=== PATIENT | male | born 1965 | race Caucasian/White ===

== ENCOUNTER 2019-02-22 09:01 | Emergency (ER) | payer OTHER ==
[~2019-02-22] VITALS: Ht 177.8 cm; Wt 91.7 kg
[~2019-02-22 09:01] MED LIST: APIX5TAB PO; ATOR40TA78 PO; CHOL400T2 PO; GABA300C10 PO; HYDR25TA6 PO; INSU100I13 SQ-INSULIN; LISI-167 PO; METF-649 PO; METF500T17 PO; PANT40TA5 PO; SULF-169 PO; TRAZ-137 PO
[2019-02-22] MEDS ORDERED: SODIUM CHLORIDE FLUSH 10ML SYR IVF ONE (10:00)
--- NOTE | 2019-02-22 10:08 | NUR ---
non toxic appearing man presents to ed with c/o of left sided facial swelling from jaw into ear. States started 2 days ago and has gotten progressively worse. Having some issues swollen and with balance. States this doesnt feel like a dental infection. IV started. Pt placed on cont. pulse ox and bp. POC discussed. Pt agreeable. Will continue to monitor.
[2019-02-22 10:48] LABS: BASOPHILS # (AUTO) 0.04 x10^3/uL (0-0.1); BASOPHILS % (AUTO) 0 % (0-1); EOSINOPHILS # (AUTO) 0.28 x10^3/uL (0-0.4); EOSINOPHILS % (AUTO) 3 % (1-7); LYMPHOCYTES # (AUTO) 1.08 x10^3/uL (1-3.4); LYMPHOCYTES % (AUTO) 12 % (22-44); MD NO; MEAN CORPUSCULAR HEMOGLOBIN 29.1 pg (27.5-34.5); MEAN CORPUSCULAR HGB CONC 33.1 g/dL (33.2-36.2); MEAN PLATELET VOLUME 8.6 fL (7.4-10.4); MONOCYTES # (AUTO) 0.77 x10^3/uL (0.2-0.8); MONOCYTES % (AUTO) 9 % (2-9); NEUTROPHILS # (AUTO) 6.63 x10^3/uL (1.8-6.8); NEUTROPHILS % (AUTO) 75 % (42-75); PLATELET COUNT 206 x10^3/uL (130-400); RED CELL DISTRIBUTION WIDTH 15.2 % (9.4-14.8)
[2019-02-22 10:49] LABS: ALBUMIN 3.8 g/dL (3.4-5.0); ANION GAP 9 mmol/L (5-15); CALCIUM 8.8 mg/dL (8.5-10.1); CHLORIDE 102 mmol/L (98-107); CREATININE 0.94 mg/dL (0.7-1.3)
--- NOTE | 2019-02-22 11:00 | NUR ---
PT TO CT VIA [facility].
[2019-02-22] MEDS ORDERED: OMNIPAQUE 350 MG/ML, 75ML BOTTLE ONE (11:15)
--- NOTE | 2019-02-22 11:15 | NUR ---
PT BACK FROM CT VIA [facility].
[2019-02-22] MEDS ORDERED: CLINDAMYCIN PMX 600MG/50ML 50 ML IV SCH (12:16)
[2019-02-22] MEDS ORDERED: HYDROmorphone 1 MG/ML, 1ML VIAL ONE (12:26)
[2019-02-22] MEDS ORDERED: ONDANSETRON 2MG/ML, 2ML ONE (12:27)
[2019-02-22] MEDS ORDERED: CLINDAMYCIN PMX 600MG/50ML 50 ML ONE (12:27)
[2019-02-22] MEDS ORDERED: ONDANSETRON 2MG/ML, 2ML IVPush ONE (12:30)
[2019-02-22] MEDS ORDERED: HYDROmorphone 1 MG/ML, 1ML INJ IVPush PRN (12:30)
--- NOTE | 2019-02-22 12:34 | NUR ---
IV ABX STARTED PER JUN. BC X 2 DRAWN EARLIER. PT ALSO MEDICATED FOR PAIN. 5 RIGHTS VERIFIED PRIOR. 3 P'S ADDRESSED. POC UPDATED. WILL CONTINUE TO MONITOR.
[2019-02-22 13:40] VITALS: BP 170/97
== END 2019-02-22 13:50 | disposition home or self-care (01) ==
LOC: ED 11:32
DX: K02.9 Dental caries, unspecified (principal); L03.211 Cellulitis of face; I10 Essential (primary) hypertension; E11.9 Type 2 diabetes mellitus without complications; Z86.73 Personal history of transient ischemic attack (TIA), and cerebral infarction without residual deficits; Z87.891 Personal history of nicotine dependence
CPT/HCPCS: 36415; 70487; 80048; 82040; 85025; 87040; 96365; 96375; 99284; J1170; J2405; Q9967

== ENCOUNTER 2019-09-26 05:45 | Emergency (ER) | payer OTHER ==
[~2019-09-26] VITALS: Ht 177.8 cm; Wt 99.3 kg
[~2019-09-26 05:45] MED LIST changes: -TRAZ-137 PO; +TRAZ-175 PO
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
[2019-09-26] MEDS ORDERED: SODIUM CHLORIDE FLUSH 10ML SYR IVF ONE (06:00)
[2019-09-26] MEDS ORDERED: DIPHENHYDRAMINE 50 MG/ML, 1ML IVPush ONE (06:00)
[2019-09-26] MEDS ORDERED: METOCLOPRAMIDE 5 MG/ML, 2ML IVPush ONE (06:00)
[2019-09-26] MEDS ORDERED: INSU100I28 SC (06:10)
[2019-09-26] MEDS ORDERED: OMEP40CA42 PO (06:10)
[2019-09-26] MEDS ORDERED: AMLO-150 PO (06:10)
[2019-09-26] MEDS ORDERED: GLIP5TAB10 PO (06:10)
[2019-09-26] MEDS ORDERED: METO25TA35 PO (06:10)
[2019-09-26] MEDS ORDERED: LISI-170 PO (06:10)
--- NOTE | 2019-09-26 06:18 | NUR ---
PT TO CT.
[2019-09-26 06:22] LABS: BASOPHILS # (AUTO) 0.03 x10^3/uL (0-0.1); BASOPHILS % (AUTO) 1 % (0-1); EOSINOPHILS # (AUTO) 0.33 x10^3/uL (0-0.4); EOSINOPHILS % (AUTO) 6 % (1-7); LYMPHOCYTES # (AUTO) 1.11 x10^3/uL (1-3.4); LYMPHOCYTES % (AUTO) 19 % (22-44); MD NO; MEAN CORPUSCULAR HEMOGLOBIN 28.5 pg (27.5-34.5); MEAN CORPUSCULAR VOLUME 83.6 fL (81-97); MEAN PLATELET VOLUME 8.7 fL (7.4-10.4); MONOCYTES # (AUTO) 0.56 x10^3/uL (0.2-0.8); MONOCYTES % (AUTO) 10 % (2-9); NEUTROPHILS # (AUTO) 3.76 x10^3/uL (1.8-6.8); NEUTROPHILS % (AUTO) 65 % (42-75); PLATELET COUNT 196 x10^3/uL (130-400); RED BLOOD COUNT 5.03 x10^6/uL (4.38-5.82); RED CELL DISTRIBUTION WIDTH 13.5 % (9.4-14.8)
[2019-09-26] MEDS ORDERED: METOCLOPRAMIDE 5 MG/ML, 2ML ONE (06:23)
[2019-09-26] MEDS ORDERED: DIPHENHYDRAMINE 50 MG/ML, 1ML ONE (06:23)
--- NOTE | 2019-09-26 06:33 | NUR ---
PT MEDICATED TO MAR. ERP TO BEDSIDE TO COMPLETE STROKE SCALE AND UPDATE PT ON POC. PT ABLE TO DO ALL TASKS APPROPRIATELY DURING STROKE SCALE. NO SIGNS OF ACUTE DISTRESS, WILL CONTINUE TO MONITOR.
[2019-09-26 06:36] LABS: ALBUMIN 3.5 g/dL (3.4-5.0); ANION GAP 7 mmol/L (5-15); CALCIUM 8.3 mg/dL (8.5-10.1); CHLORIDE 106 mmol/L (98-107); CREATININE 0.94 mg/dL (0.7-1.3)
[2019-09-26 06:37] LABS: INTERNATIONAL NORMALIZED RATIO 0.93 (0.93-1.1); PROTHROMBIN TIME 9.8 Seconds (9.6-11.5)
--- NOTE | 2019-09-26 06:46 | NUR ---
REPORT GIVEN TO ILIR COOPER, TO ASSUME FULL CARE.
--- NOTE | 2019-09-26 06:46 | NUR ---
RECEIVED REPORT FROM CHANDRA. PT LAYING ON GURNEY AWAKE & CALM, RESPONDS APPROP TO STAFF, NAD, NO NEEDS AT THIS TIME, AT BS, CALL LIGHT WITHIN REACH.
[2019-09-26 08:02] VITALS: BP 135/76
--- NOTE | 2019-09-26 08:50 | NUR ---
Patient given discharge instructions and they have confirmed that they understand the instructions. Patient ambulatory with steady gait.
== END 2019-09-26 08:51 | disposition home or self-care (01) ==
LOC: ED 06:24
DX: R51 Headache (principal); I10 Essential (primary) hypertension; E11.9 Type 2 diabetes mellitus without complications; Z79.01 Long term (current) use of anticoagulants; Z86.73 Personal history of transient ischemic attack (TIA), and cerebral infarction without residual deficits
CPT/HCPCS: 36415; 70450; 80048; 82040; 85025; 85610; 85730; 96374; 96375; 99284; J1200; J2765

== ENCOUNTER 2019-10-15 15:18 | Emergency (ER) | payer SELFPAY ==
[~2019-10-15] VITALS: Ht 177.8 cm; Wt 100.5 kg
[~2019-10-15 15:18] MED LIST changes: +AMLO-150 PO; +GLIP5TAB10 PO; +INSU100I28 SC; +LISI-170 PO; +METO25TA35 PO; +OMEP40CA42 PO
[2019-10-15 15:28] VITALS: BP 160/82
[2019-10-15 15:58] LABS: BASOPHILS # (AUTO) 0.04 x10^3/uL (0-0.1); BASOPHILS % (AUTO) 1 % (0-1); EOSINOPHILS # (AUTO) 0.47 x10^3/uL (0-0.4); EOSINOPHILS % (AUTO) 6 % (1-7); LYMPHOCYTES # (AUTO) 1.76 x10^3/uL (1-3.4); LYMPHOCYTES % (AUTO) 22 % (22-44); MD NO; MEAN CORPUSCULAR HEMOGLOBIN 27.7 pg (27.5-34.5); MEAN CORPUSCULAR HGB CONC 32.6 g/dL (33.2-36.2); MEAN CORPUSCULAR VOLUME 85.1 fL (81-97); MEAN PLATELET VOLUME 8.8 fL (7.4-10.4); MONOCYTES # (AUTO) 0.61 x10^3/uL (0.2-0.8); MONOCYTES % (AUTO) 8 % (2-9); NEUTROPHILS # (AUTO) 4.99 x10^3/uL (1.8-6.8); NEUTROPHILS % (AUTO) 64 % (42-75); PLATELET COUNT 211 x10^3/uL (130-400); RED BLOOD COUNT 5.21 x10^6/uL (4.38-5.82); RED CELL DISTRIBUTION WIDTH 14.1 % (9.4-14.8)
[2019-10-15 16:07] LABS: ALANINE AMINOTRANSFERASE 49 U/L (12-78); ALBUMIN 3.5 g/dL (3.4-5.0); ANION GAP 4 mmol/L (5-15); CALCIUM 8.7 mg/dL (8.5-10.1); CHLORIDE 107 mmol/L (98-107); CREATININE 0.91 mg/dL (0.7-1.3)
[2019-10-15 16:12] LABS: ALKALINE PHOSPHATASE 57 U/L (45-117); BILIRUBIN,TOTAL 0.3 mg/dL (0.2-1.0); TOTAL PROTEIN 7.4 g/dL (6.4-8.2); TROPONIN I < 0.015 ng/mL (0.000-0.045)
== END 2019-10-15 16:36 | disposition home or self-care (01) ==
LOC: ED 16:26
DX: R60.0 Localized edema (principal); I10 Essential (primary) hypertension; E11.9 Type 2 diabetes mellitus without complications; R07.9 Chest pain, unspecified; I25.2 Old myocardial infarction; R00.0 Tachycardia, unspecified; Z86.73 Personal history of transient ischemic attack (TIA), and cerebral infarction without residual deficits
CPT/HCPCS: 36415; 71045; 80053; 83880; 84484; 85025; 93005; 99285

== ENCOUNTER 2019-12-06 06:55 | Inpatient (IN) | payer BC, OTHER ==
[~2019-12-06] VITALS: Ht 177.8 cm; Wt 97.5 kg
--- NOTE | 2019-12-06 08:04 | NUR ---
CT DELAY; 07 LAB IN ROOM-0800 CODE NEURO ON ANOTHER PATIENT
[2019-12-06 08:06] LABS: ALBUMIN 3.4 g/dL (3.4-5.0); ANION GAP 6 mmol/L (5-15); CALCIUM 8.6 mg/dL (8.5-10.1); CHLORIDE 106 mmol/L (98-107)
[2019-12-06 08:12] LABS: ALANINE AMINOTRANSFERASE 43 U/L (12-78); ALKALINE PHOSPHATASE 51 U/L (45-117); BILIRUBIN,TOTAL 0.3 mg/dL (0.2-1.0); CREATININE 0.86 mg/dL (0.7-1.3); TOTAL PROTEIN 7.1 g/dL (6.4-8.2); TROPONIN I < 0.015 ng/mL (0.000-0.045)
[2019-12-06 08:14] LABS: BASOPHILS # (AUTO) 0.05 x10^3/uL (0-0.1); BASOPHILS % (AUTO) 1 % (0-1); EOSINOPHILS # (AUTO) 0.25 x10^3/uL (0-0.4); EOSINOPHILS % (AUTO) 3 % (1-7); LYMPHOCYTES # (AUTO) 1.05 x10^3/uL (1-3.4); LYMPHOCYTES % (AUTO) 13 % (22-44); MD NO; MEAN CORPUSCULAR HEMOGLOBIN 28.4 pg (27.5-34.5); MEAN CORPUSCULAR HGB CONC 33.6 g/dL (33.2-36.2); MEAN CORPUSCULAR VOLUME 84.5 fL (81-97); MEAN PLATELET VOLUME 8.9 fL (7.4-10.4); MONOCYTES # (AUTO) 0.51 x10^3/uL (0.2-0.8); MONOCYTES % (AUTO) 7 % (2-9); NEUTROPHILS # (AUTO) 5.93 x10^3/uL (1.8-6.8); NEUTROPHILS % (AUTO) 76 % (42-75); PLATELET COUNT 196 x10^3/uL (130-400); RED BLOOD COUNT 4.99 x10^6/uL (4.38-5.82); RED CELL DISTRIBUTION WIDTH 14.2 % (9.4-14.8)
--- NOTE | 2019-12-06 08:31 | NUR ---
pt to ct with tech
--- NOTE | 2019-12-06 09:57 | NUR ---
pt agreeable to admission. no acute changes noted since hios arrival here today, and i will continue to monitor and treat as ordered, as well as prn while awaiting a room assignment vandana admission.
[2019-12-06] MEDS ORDERED: ACETAMINOPHEN 325 MG TABLET ONE (09:59)
[2019-12-06] MEDS ORDERED: hydrALAzine 20 MG/ML, 1ML IVPush PRN (10:30)
[2019-12-06] MEDS ORDERED: morphine SULFATE 10 MG/ML, 1ML IVPush PRN (10:30)
--- NOTE | 2019-12-06 11:20 | NUR ---
mealtray ordered. pt agreeable to admission. piv started.
[2019-12-06] MEDS: INSULIN LISPRO 100 UNITS/ML, PEN SQ-INSULIN SCH ×3 (11:58→20:38)
--- NOTE | 2019-12-06 12:00 | NUR ---
meal tray delivered and appreciated. no insulin required to cover sliding scale
--- NOTE | 2019-12-06 13:46 | NUR ---
TASK RN, ASSISTING PRIMARY. VSS/UPDATED IN COMPUTER. PT TO MRI.
[2019-12-06] MEDS ORDERED: GADOTERATE 10 MMOL/20 ML VIAL ONE (13:50)
--- NOTE | 2019-12-06 14:00 | NUR ---
verbal sbar exchanged michaelle gardner on the telemetry floor. we will begin to prepare for transport at this time.
--- NOTE | 2019-12-06 14:21 | NUR ---
CORRECTION TO PRIOR NOTE. I EXCHANGED KARIN HINOJOSA ON THE FLOOR FOR ADMISSION. HE HAS BEEN TO AND FROM [facility] HE TOLERATED THE IMAGING WELL, AND IS PREPARING FOR TRANSPORT TO THE FLOOR FOR ADMISSION.
[2019-12-06 14:39] VITALS: BP 160/94
[2019-12-06] MEDS: HYDROcodone/APAP 5/325 TABLET PO PRN (14:45)
[2019-12-06 19:28] VITALS: BP 158/88
[2019-12-06] MEDS: TRAZODONE 100MG TABLET PO SCH (20:26)
[2019-12-06] MEDS: LACTULOSE 10 GM/15 ML UDC PO SCH (20:27)
[2019-12-06] MEDS: APIXABAN 5 MG TABLET PO SCH (20:27)
[2019-12-06 21:47] VITALS: BP 168/91
[2019-12-06 21:52] VITALS: BP 150/85
[2019-12-06 21:57] VITALS: BP 136/83
[2019-12-07] VITALS (7 sets, daily range): BP systolic 129–174; BP diastolic 79–111
[2019-12-07] MEDS: HYDROcodone/APAP 5/325 TABLET PO PRN ×2 (00:07→10:33)
[2019-12-07] MEDS: PANTOPRAZOLE 40MG TABLET PO SCH (05:46)
[2019-12-07 06:28] LABS: CHLORIDE 106 mmol/L (98-107)
[2019-12-07 06:30] LABS: BASOPHILS # (AUTO) 0.03 x10^3/uL (0-0.1); BASOPHILS % (AUTO) 1 % (0-1); EOSINOPHILS # (AUTO) 0.35 x10^3/uL (0-0.4); EOSINOPHILS % (AUTO) 5 % (1-7); LYMPHOCYTES # (AUTO) 1.19 x10^3/uL (1-3.4); LYMPHOCYTES % (AUTO) 18 % (22-44); MD NO; MEAN CORPUSCULAR HEMOGLOBIN 28.3 pg (27.5-34.5); MEAN CORPUSCULAR HGB CONC 33.3 g/dL (33.2-36.2); MEAN CORPUSCULAR VOLUME 84.9 fL (81-97); MEAN PLATELET VOLUME 9.1 fL (7.4-10.4); MONOCYTES # (AUTO) 0.52 x10^3/uL (0.2-0.8); MONOCYTES % (AUTO) 8 % (2-9); NEUTROPHILS # (AUTO) 4.41 x10^3/uL (1.8-6.8); NEUTROPHILS % (AUTO) 68 % (42-75); PLATELET COUNT 185 x10^3/uL (130-400); RED BLOOD COUNT 5.02 x10^6/uL (4.38-5.82); RED CELL DISTRIBUTION WIDTH 14.2 % (9.4-14.8)
[2019-12-07 06:32] LABS: ANION GAP 8 mmol/L (5-15); CREATININE 0.92 mg/dL (0.7-1.3)
[2019-12-07] MEDS: INSULIN LISPRO 100 UNITS/ML, PEN SQ-INSULIN SCH ×4 (08:44→20:20)
[2019-12-07] MEDS: LACTULOSE 10 GM/15 ML UDC PO SCH ×2 (09:00→20:40)
[2019-12-07] MEDS: LISINOPRIL 5 MG TABLET PO SCH (09:57)
[2019-12-07] MEDS: APIXABAN 5 MG TABLET PO SCH ×2 (09:57→20:40)
[2019-12-07] MEDS: AMLODIPINE 5 MG TABLET PO SCH (09:58)
[2019-12-07] MEDS: METOPROLOL TARTRATE 25 MG TAB PO SCH (09:58)
[2019-12-07] MEDS: GABAPENTIN 300 MG CAPSULE PO SCH (09:59)
[2019-12-07] MEDS: ASPIRIN 81 MG TABLET EC PO SCH (09:59)
[2019-12-07] MEDS: INSULIN GLARGINE 100 UNITS/ML, PEN SQ-INSULIN SCH (10:22)
[2019-12-07] MEDS: TRAZODONE 100MG TABLET PO SCH (20:40)
[2019-12-08 00:16] VITALS: BP 183/80
[2019-12-08] MEDS: ASPIRIN 81 MG TABLET EC PO SCH (05:45)
[2019-12-08] MEDS: PANTOPRAZOLE 40MG TABLET PO SCH (05:45)
[2019-12-08 07:34] VITALS: BP 169/83
[2019-12-08] MEDS: INSULIN LISPRO 100 UNITS/ML, PEN SQ-INSULIN SCH ×2 (07:40→11:50)
[2019-12-08] MEDS: APIXABAN 5 MG TABLET PO SCH (08:37)
[2019-12-08] MEDS: GABAPENTIN 300 MG CAPSULE PO SCH (08:37)
[2019-12-08] MEDS: METOPROLOL TARTRATE 25 MG TAB PO SCH (08:38)
[2019-12-08] MEDS: LISINOPRIL 5 MG TABLET PO SCH (08:39)
[2019-12-08] MEDS: AMLODIPINE 5 MG TABLET PO SCH (08:39)
[2019-12-08] MEDS: INSULIN GLARGINE 100 UNITS/ML, PEN SQ-INSULIN SCH (08:56)
[2019-12-08] MEDS: LACTULOSE 10 GM/15 ML UDC PO SCH (08:56)
[2019-12-08] MEDS ORDERED: INSU100I28 SC (14:42)
== END 2019-12-08 16:40 | disposition home or self-care (01) | DRG 125 ==
LOC: ED 07:30 → EDIP 09:50 → 4WST 14:29 → DCLOUNGE 12-08 16:33
PROVIDERS: ADMIT Internal Medicine; ATTEND Family Medicine
DX: H54.3 Unqualified visual loss, both eyes (principal); E11.9 Type 2 diabetes mellitus without complications; I11.9 Hypertensive heart disease without heart failure; Z79.4 Long term (current) use of insulin; Z87.891 Personal history of nicotine dependence; Z86.73 Personal history of transient ischemic attack (TIA), and cerebral infarction without residual deficits; J32.9 Chronic sinusitis, unspecified
CPT/HCPCS: 36415; 70450; 70553; 71045; 80048; 80053; 82962; 83036; 84484; 85025; 93005; 93306; 93880; G0378; 92523-GN; A9575; J1815

== ENCOUNTER 2020-01-12 07:51 | Day surgery (SDC) | payer BC ==
[~2020-01-12] VITALS: Ht 177.8 cm; Wt 100.0 kg
[~2020-01-12 07:51] MED LIST changes: -PANT40TA5 PO; +PANT40TA6 PO
[2020-01-12] MEDS ORDERED: LIDOCAINE 2%, 20ML ONE (08:44)
== END 2020-01-12 09:58 | disposition home or self-care (01) ==
LOC: CACL 07:51
PROVIDERS: ATTEND Internal Medicine Cardiovascular Disease
DX: Z45.09 Encounter for adjustment and management of other cardiac device (principal); I63.9 Cerebral infarction, unspecified; I10 Essential (primary) hypertension; E11.9 Type 2 diabetes mellitus without complications; E78.5 Hyperlipidemia, unspecified; Z79.4 Long term (current) use of insulin; Z79.01 Long term (current) use of anticoagulants; Z79.899 Other long term (current) drug therapy; Z88.0 Allergy status to penicillin; Z88.8 Allergy status to other drugs, medicaments and biological substances
CPT/HCPCS: 33286

== ENCOUNTER 2020-01-24 05:34 | Emergency (ER) | payer BC ==
[~2020-01-24] VITALS: Ht 177.8 cm; Wt 100.9 kg
--- NOTE | 2020-01-24 05:52 | NUR ---
54/M pain in L leg x4 days, worsening swelling. Pain radiates up calf to back of knee with standing. Redness/Rash/warm to the touch
[2020-01-24] MEDS ORDERED: SODIUM CHLORIDE FLUSH 10ML SYR IVF ONE (06:00)
[2020-01-24] MEDS ORDERED: ONDANSETRON 2MG/ML, 2ML IVPush ONE (06:00)
[2020-01-24] MEDS ORDERED: MORPHINE SULFATE 4 MG/ML, 1ML IVPush PRN (06:00)
[2020-01-24] MEDS ORDERED: MORPHINE SULFATE 4 MG/ML, 1ML ONE (06:03)
[2020-01-24] MEDS ORDERED: ONDANSETRON 2MG/ML, 2ML ONE (06:03)
[2020-01-24 06:22] LABS: BASOPHILS % (AUTO) 1 % (0-1); EOSINOPHILS % (AUTO) 4 % (1-7); LYMPHOCYTES % (AUTO) 13 % (22-44); MEAN CORPUSCULAR HEMOGLOBIN 27.6 pg (27.5-34.5); MEAN CORPUSCULAR HGB CONC 33.4 g/dL (33.2-36.2); MEAN PLATELET VOLUME 8.9 fL (7.4-10.4); MONOCYTES % (AUTO) 8 % (2-9); NEUTROPHILS % (AUTO) 74 % (42-75); PLATELET COUNT 218 x10^3/uL (130-400); RED BLOOD COUNT 5.18 x10^6/uL (4.38-5.82); RED CELL DISTRIBUTION WIDTH 13.6 % (9.4-14.8)
[2020-01-24 06:31] LABS: MD NO
[2020-01-24 06:32] LABS: ALANINE AMINOTRANSFERASE 27 U/L (12-78); ALBUMIN 2.9 g/dL (3.4-5.0); ANION GAP 6 mmol/L (5-15); CALCIUM 8.4 mg/dL (8.5-10.1); CHLORIDE 102 mmol/L (98-107); CREATININE 1.36 mg/dL (0.7-1.3)
[2020-01-24 06:37] LABS: ALKALINE PHOSPHATASE 104 U/L (45-117); BILIRUBIN,TOTAL 0.4 mg/dL (0.2-1.0); TOTAL PROTEIN 7.4 g/dL (6.4-8.2)
[2020-01-24] MEDS ORDERED: CLINDAMYCIN 300 MG CAPSULE PO ONE (07:00)
--- NOTE | 2020-01-24 07:00 | NUR ---
INITIAL PT CONTACT. PT SITTING UPRIGHT ON OBDULIOLAURY, NAD. AT [facility]. PT DENIES ANY NEEDS AT THIS TIME. CALL LIGHT WITHIN REACH, FALL PRECAUTIONS IN PLACE.
[2020-01-24] MEDS ORDERED: CLINDAMYCIN 300 MG CAPSULE ONE (07:03)
[2020-01-24 08:11] VITALS: BP 160/84
--- NOTE | 2020-01-24 08:14 | NUR ---
Patient given discharge instructions and they have confirmed that they understand the instructions. Patient ambulatory with cane use to d/c desk.
== END 2020-01-24 08:14 | disposition home or self-care (01) ==
LOC: ED 06:44
DX: L03.116 Cellulitis of left lower limb (principal); M25.572 Pain in left ankle and joints of left foot; M79.662 Pain in left lower leg; E11.65 Type 2 diabetes mellitus with hyperglycemia; M79.89 Other specified soft tissue disorders; I10 Essential (primary) hypertension; Z86.73 Personal history of transient ischemic attack (TIA), and cerebral infarction without residual deficits
CPT/HCPCS: 36415; 71045; 80053; 83880; 85025; 93971; 96374; 96375; 99285; J2270; J2405

== ENCOUNTER 2020-02-06 14:37 | Inpatient (IN) | payer BC ==
[~2020-02-06] VITALS: Ht 177.8 cm; Wt 101.6 kg
[2020-02-06 15:43] LABS: BASOPHILS % (AUTO) 1 % (0-1); EOSINOPHILS % (AUTO) 6 % (1-7); LYMPHOCYTES % (AUTO) 22 % (22-44); MEAN CORPUSCULAR HEMOGLOBIN 27.4 pg (27.5-34.5); MEAN PLATELET VOLUME 8.6 fL (7.4-10.4); MONOCYTES % (AUTO) 10 % (2-9); NEUTROPHILS % (AUTO) 61 % (42-75); PLATELET COUNT 257 x10^3/uL (130-400); RED BLOOD COUNT 5.07 x10^6/uL (4.38-5.82); RED CELL DISTRIBUTION WIDTH 14.1 % (9.4-14.8)
[2020-02-06 15:48] LABS: ALBUMIN 3.1 g/dL (3.4-5.0); ANION GAP 4 mmol/L (5-15); CALCIUM 8.7 mg/dL (8.5-10.1); CHLORIDE 105 mmol/L (98-107); CREATININE 1.05 mg/dL (0.7-1.3)
[2020-02-06 15:57] LABS: MD NO
--- NOTE | 2020-02-06 17:28 | NUR ---
PT WITH LEFT FOOT/ANKLE CELLULITIS CURRENTLY TAKING ANTIBIOTICS BUT DOES NOT FEEL THAT THERE IS ANY IMPROVEMENT.
[2020-02-06] MEDS ORDERED: CEFTRIAXONE PMX 1GM/50ML 50 ML IVPB ONE (18:00)
[2020-02-06] MEDS ORDERED: VANCOMYCIN PER PHARMACY MC ONE (18:00)
[2020-02-06] MEDS ORDERED: VANCOMYCIN 2,000 MG in SODIUM CHLORIDE 0.9% 500 ML IV ONE (18:00)
[2020-02-06] MEDS ORDERED: VANCOMYCIN 1,900 MG in SODIUM CHLORIDE 0.9% 250 ML IV ONE (18:00)
[2020-02-06] MEDS ORDERED: CEFTRIAXONE PMX 1GM/50ML 50 ML ONE (18:33)
--- NOTE | 2020-02-06 18:50 | NUR ---
ANTIBIOTICS INFUSING W/O DIFFICULTY. CALL LIGHT W/I REACH, VSS
[2020-02-06] MEDS ORDERED: ACETAMINOPHEN 325 MG TABLET PO PRN (19:00)
[2020-02-06] MEDS ORDERED: DOCUSATE 100 MG CAPSULE PO PRN (19:00)
[2020-02-06] MEDS ORDERED: ZOLPIDEM 5MG TABLET PO PRN (19:00)
[2020-02-06] MEDS ORDERED: ONDANSETRON 2MG/ML, 2ML IVPush PRN (19:00)
[2020-02-06] MEDS ORDERED: ENOXAPARIN 40 MG/0.4 ML SQ SCH (19:00)
[2020-02-06] MEDS ORDERED: SODIUM CHLORIDE FLUSH 10ML SYR IVF PRN (19:00)
[2020-02-06] MEDS ORDERED: GUAIFENESIN/DM 200-20MG, 10ML UDC PO PRN (19:00)
[2020-02-06] MEDS ORDERED: METHOCARBAMOL 500 MG TABLET PO PRN (19:00)
[2020-02-06] MEDS ORDERED: ENALAPRILAT 1.25 MG/ML, 2ML IVPush PRN (19:00)
[2020-02-06] MEDS ORDERED: MORPHINE SULFATE 4 MG/ML, 1ML ONE (19:16)
--- NOTE | 2020-02-06 19:16 | NUR ---
SBAR RPT TO ILIR QUILES
[2020-02-06] MEDS: morphine SULFATE 10 MG/ML, 1ML IVPush PRN ×2 (19:18→23:03)
--- NOTE | 2020-02-06 20:30 | NUR ---
REQUESTED DOXY IV FROM PHARMACY.
--- NOTE | 2020-02-06 21:14 | NUR ---
REPORT GIVEN TO WON HAZEL.
[2020-02-06 21:28] VITALS: BP 173/108
[2020-02-06] MEDS: DOXYCYCLINE 100 MG in DEXTROSE 5% 250 ML IV SCH (21:31)
[2020-02-06] MEDS: APIXABAN 5 MG TABLET PO SCH (21:40)
[2020-02-06] MEDS: TRAZODONE 100MG TABLET PO SCH (21:40)
[2020-02-06] MEDS: FAMOTIDINE 20 MG TABLET PO SCH (21:41)
[2020-02-06] MEDS: ATORVASTATIN 40 MG TABLET PO SCH (21:41)
[2020-02-06] MEDS ORDERED: FLU VACC QS2020-21(6MOS UP)/PF 60MCG/0.5 ML SYR IM ONE (22:00)
[2020-02-06] MEDS: INSULIN REGULAR 100 UNITS/ML, 3ML VIAL SQ-INSULIN SCH (22:18)
[2020-02-07 00:24] VITALS: BP 142/79
[2020-02-07 05:31] LABS: ANION GAP 5 mmol/L (5-15); CALCIUM 8.3 mg/dL (8.5-10.1); CHLORIDE 106 mmol/L (98-107); CREATININE 0.94 mg/dL (0.7-1.3)
[2020-02-07] MEDS: morphine SULFATE 10 MG/ML, 1ML IVPush PRN ×2 (05:43→20:09)
[2020-02-07 05:51] LABS: BASOPHILS % (AUTO) 1 % (0-1); EOSINOPHILS % (AUTO) 5 % (1-7); LYMPHOCYTES % (AUTO) 17 % (22-44); MEAN CORPUSCULAR HEMOGLOBIN 27.7 pg (27.5-34.5); MEAN PLATELET VOLUME 8.6 fL (7.4-10.4); MONOCYTES % (AUTO) 9 % (2-9); NEUTROPHILS % (AUTO) 68 % (42-75); PLATELET COUNT 194 x10^3/uL (130-400); RED BLOOD COUNT 4.58 x10^6/uL (4.38-5.82); RED CELL DISTRIBUTION WIDTH 13.9 % (9.4-14.8)
[2020-02-07 05:55] LABS: MD NO
[2020-02-07 07:27] VITALS: BP 149/92
[2020-02-07] MEDS: DOXYCYCLINE 100 MG in DEXTROSE 5% 250 ML IV SCH ×2 (07:53→19:47)
[2020-02-07] MEDS: INSULIN REGULAR 100 UNITS/ML, 3ML VIAL SQ-INSULIN SCH ×4 (07:58→20:08)
[2020-02-07] MEDS: GABAPENTIN 300 MG CAPSULE PO SCH (07:59)
[2020-02-07] MEDS: PANTOPRAZOLE 40MG TABLET PO SCH (07:59)
[2020-02-07] MEDS: CHOLECALCIFEROL 400 UNITS TABLET PO SCH (07:59)
[2020-02-07] MEDS: METOPROLOL TARTRATE 25 MG TAB PO SCH (07:59)
[2020-02-07] MEDS: AMLODIPINE 5 MG TABLET PO SCH (07:59)
[2020-02-07] MEDS: APIXABAN 5 MG TABLET PO SCH ×2 (07:59→20:08)
[2020-02-07] MEDS: LISINOPRIL 10 MG TABLET PO SCH (08:00)
[2020-02-07] MEDS: FAMOTIDINE 20 MG TABLET PO SCH ×2 (08:00→20:08)
[2020-02-07] MEDS: INSULIN GLARGINE 100 UNITS/ML, PEN SQ-INSULIN SCH ×2 (08:34→20:09)
[2020-02-07] MEDS: HYDROcodone/APAP 5/325 TABLET PO PRN ×2 (08:55→17:30)
[2020-02-07 13:13] VITALS: BP 126/82
[2020-02-07] MEDS: LACTOBACILLUS CHEW TABLET PO SCH (18:10)
[2020-02-07 19:01] VITALS: BP 143/81
[2020-02-07] MEDS: TRAZODONE 100MG TABLET PO SCH (20:08)
[2020-02-07] MEDS: ATORVASTATIN 40 MG TABLET PO SCH (20:08)
[2020-02-08 00:45] VITALS: BP 188/96
[2020-02-08] MEDS: morphine SULFATE 10 MG/ML, 1ML IVPush PRN (00:52)
[2020-02-08 01:27] VITALS: BP 164/90
[2020-02-08 05:29] LABS: BASOPHILS % (AUTO) 1 % (0-1); EOSINOPHILS % (AUTO) 6 % (1-7); LYMPHOCYTES % (AUTO) 22 % (22-44); MEAN CORPUSCULAR HEMOGLOBIN 27.5 pg (27.5-34.5); MEAN CORPUSCULAR HGB CONC 32.9 g/dL (33.2-36.2); MEAN PLATELET VOLUME 8.5 fL (7.4-10.4); MONOCYTES % (AUTO) 10 % (2-9); NEUTROPHILS % (AUTO) 61 % (42-75); PLATELET COUNT 219 x10^3/uL (130-400); RED BLOOD COUNT 4.91 x10^6/uL (4.38-5.82); RED CELL DISTRIBUTION WIDTH 13.8 % (9.4-14.8)
[2020-02-08 05:39] LABS: ANION GAP 6 mmol/L (5-15); CALCIUM 8.7 mg/dL (8.5-10.1); CHLORIDE 107 mmol/L (98-107); CREATININE 1.15 mg/dL (0.7-1.3)
[2020-02-08 05:58] LABS: MD NO
[2020-02-08 06:04] VITALS: BP 173/98
[2020-02-08 06:15] VITALS: BP 161/77
[2020-02-08] MEDS: HYDROcodone/APAP 5/325 TABLET PO PRN ×2 (06:32→12:02)
[2020-02-08] MEDS: APIXABAN 5 MG TABLET PO SCH (07:55)
[2020-02-08] MEDS: CHOLECALCIFEROL 400 UNITS TABLET PO SCH (07:55)
[2020-02-08] MEDS: AMLODIPINE 5 MG TABLET PO SCH (07:55)
[2020-02-08] MEDS: FAMOTIDINE 20 MG TABLET PO SCH (07:55)
[2020-02-08] MEDS: DOXYCYCLINE 100 MG in DEXTROSE 5% 250 ML IV SCH (07:55)
[2020-02-08] MEDS: PANTOPRAZOLE 40MG TABLET PO SCH (07:55)
[2020-02-08] MEDS: LACTOBACILLUS CHEW TABLET PO SCH ×2 (07:55→12:02)
[2020-02-08] MEDS: GABAPENTIN 300 MG CAPSULE PO SCH (07:55)
[2020-02-08] MEDS: LISINOPRIL 10 MG TABLET PO SCH (07:56)
[2020-02-08] MEDS: METOPROLOL TARTRATE 25 MG TAB PO SCH (07:56)
[2020-02-08] MEDS: INSULIN GLARGINE 100 UNITS/ML, PEN SQ-INSULIN SCH (07:56)
[2020-02-08] MEDS: INSULIN REGULAR 100 UNITS/ML, 3ML VIAL SQ-INSULIN SCH ×2 (07:58→12:02)
[2020-02-08] MEDS ORDERED: DOXY100T23 PO (13:04)
[2020-02-08 13:23] VITALS: BP 155/91
== END 2020-02-08 14:52 | disposition home or self-care (01) | DRG 603 ==
LOC: ED 17:09 → EDIP 19:12 → 3N 21:23
PROVIDERS: ADMIT Internal Medicine; ATTEND Internal Medicine
DX: L03.116 Cellulitis of left lower limb (principal); E87.1 Hypo-osmolality and hyponatremia; E11.65 Type 2 diabetes mellitus with hyperglycemia; E66.9 Obesity, unspecified; E78.5 Hyperlipidemia, unspecified; E88.09 Other disorders of plasma-protein metabolism, not elsewhere classified; K21.9 Gastro-esophageal reflux disease without esophagitis; I10 Essential (primary) hypertension; Z79.01 Long term (current) use of anticoagulants; Z79.4 Long term (current) use of insulin; Z80.0 Family history of malignant neoplasm of digestive organs; Z68.32 Body mass index [BMI] 32.0-32.9, adult; Z82.49 Family history of ischemic heart disease and other diseases of the circulatory system; Z86.73 Personal history of transient ischemic attack (TIA), and cerebral infarction without residual deficits; Z87.891 Personal history of nicotine dependence; Z88.0 Allergy status to penicillin; Z23 Encounter for immunization
CPT/HCPCS: 36415; 80048; 82040; 82962; 83036; 83605; 84443; 85025; 87040; 90686; G0378; J0696; J1815; J3370; J7060; J2270; J7050

== ENCOUNTER 2020-05-03 07:10 | Outpatient (CLI) | payer BC ==
[~2020-05-03 07:10] MED LIST changes: +DOXY100T23 PO; -METF-649 PO; +METF-734 PO
== END 2020-05-03 23:59 | disposition home or self-care (01) ==
LOC: CVU 07:10
PROVIDERS: ATTEND Family Medicine
DX: M79.604 Pain in right leg (principal); M79.605 Pain in left leg; I63.9 Cerebral infarction, unspecified; E78.5 Hyperlipidemia, unspecified; E11.69 Type 2 diabetes mellitus with other specified complication
CPT/HCPCS: 93922

== ENCOUNTER 2020-07-08 15:39 | Emergency (ER) | payer BC ==
[~2020-07-08] VITALS: Ht 177.8 cm; Wt 104.1 kg
[2020-07-08] MEDS ORDERED: HYDROcodone/APAP 5/325 TABLET ONE (16:10)
[2020-07-08] MEDS ORDERED: KETOROLAC 30 MG/1 ML ONE (16:14)
[2020-07-08] MEDS ORDERED: KETOROLAC 30 MG/1 ML IM ONE (16:30)
[2020-07-08] MEDS ORDERED: HYDROcodone/APAP 5/325 TABLET PO ONE (16:30)
[2020-07-08] MEDS ORDERED: INSU100V13 SQ (16:32)
[2020-07-08] MEDS ORDERED: GLIP5TAB10 PO (16:32)
--- NOTE | 2020-07-08 16:34 | NUR ---
Pt taken to radiology. cad technician just completed draw as well. Medications given prior with [employer].
[2020-07-08 16:40] LABS: BASOPHILS % (AUTO) 1 % (0-1); EOSINOPHILS % (AUTO) 5 % (1-7); LYMPHOCYTES % (AUTO) 21 % (22-44); MEAN CORPUSCULAR HEMOGLOBIN 28.4 pg (27.5-34.5); MEAN CORPUSCULAR HGB CONC 34.5 g/dL (33.2-36.2); MEAN PLATELET VOLUME 8.6 fL (7.4-10.4); MONOCYTES % (AUTO) 10 % (2-9); NEUTROPHILS % (AUTO) 64 % (42-75); PLATELET COUNT 186 x10^3/uL (130-400); RED BLOOD COUNT 5.06 x10^6/uL (4.38-5.82); RED CELL DISTRIBUTION WIDTH 13.6 % (9.4-14.8)
[2020-07-08 16:42] LABS: MD NO
[2020-07-08 16:50] LABS: ALBUMIN 2.6 g/dL (3.4-5.0); ANION GAP 9 mmol/L (5-15); CALCIUM 8.2 mg/dL (8.5-10.1); CHLORIDE 102 mmol/L (98-107); CREATININE 1.26 mg/dL (0.7-1.3)
[2020-07-08] MEDS ORDERED: CEFTRIAXONE PMX 2GM/50ML 50 ML ONE (17:21)
[2020-07-08] MEDS ORDERED: SODIUM CHLORIDE 0.9% 1,000ML IVBOLUS ONE (17:30)
[2020-07-08] MEDS ORDERED: CEFTRIAXONE PMX 2GM/50ML 50 ML IVPB SCH (17:30)
[2020-07-08] MEDS ORDERED: SODIUM CHLORIDE FLUSH 10ML SYR IVF ONE (17:30)
[2020-07-08 17:31] LABS: HCT (SEDRATE) 41.6 % (39.2-51.8)
--- NOTE | 2020-07-08 17:41 | NUR ---
IV started, positional but able to run well with traction held by tape and coban. NS bolus and Rocephin as IVPB started. Call light in reach, and pain is now 4/10 after social media job titles on reassessment.
--- NOTE | 2020-07-08 17:53 | NUR ---
New IV site started secondary to pt c/o burning at initial site. NS and ABX stopped, new IV started, and NS and abx restarted without burning or pain at site. Initial site d/c'd with possible infiltration noted very small.
--- NOTE | 2020-07-08 18:10 | NUR ---
Report given to meal break Maikol HAZEL, and care transferred.
--- NOTE | 2020-07-08 18:41 | NUR ---
Report received from meal break RN and care reassumed. Pt noted to be up for d/c to home.
[2020-07-08 19:47] VITALS: BP 185/99
== END 2020-07-08 19:40 | disposition home or self-care (01) ==
LOC: ED 19:30
DX: L03.114 Cellulitis of left upper limb (principal); M71.122 Other infective bursitis, left elbow; M10.022 Idiopathic gout, left elbow; E10.65 Type 1 diabetes mellitus with hyperglycemia; I10 Essential (primary) hypertension; Z86.73 Personal history of transient ischemic attack (TIA), and cerebral infarction without residual deficits
CPT/HCPCS: 36415; 73080; 80048; 82040; 84550; 85025; 85651; 86140; 96365; 96366; 96372; 99284; J0696; J1885; J7030